=== PATIENT | female | born 1990 | race Caucasian/White ===

== ENCOUNTER 2018-08-08 11:13 | Emergency (ER) | payer OTHER ==
[~2018-08-08] VITALS: Ht 180.3 cm; Wt 109.9 kg
[~2018-08-08 11:13] MED LIST: CIPR500T4 PO; IBUP-974 PO
[2018-08-08 11:19] VITALS: BP 128/80
[2018-08-08 11:42] VITALS: BP 122/75
== END 2018-08-08 11:42 | disposition home or self-care (01) ==
LOC: MED 11:13
DX: O99.511 Diseases of the respiratory system complicating pregnancy, first trimester (principal); O21.9 Vomiting of pregnancy, unspecified; Z3A.01 Less than 8 weeks gestation of pregnancy; Z79.899 Other long term (current) drug therapy
CPT/HCPCS: 99283

== ENCOUNTER 2019-07-22 09:14 | Emergency (ER) | payer SELFPAY ==
[~2019-07-22] VITALS: Ht 180.3 cm; Wt 104.3 kg
[2019-07-22 09:15] VITALS: BP 161/108
--- NOTE | 2019-07-22 09:50 | NUR ---
PT WALKED TO ROOM 1 BY TRIAGE NURSE
[2019-07-22] MEDS ORDERED: hydrOXYzine HCL 25 MG TAB PO ONE (10:20)
[2019-07-22] MEDS ORDERED: ALBUTEROL SULFATE/IPRATROPIU 3 ML SOL IH ONE (10:20)
[2019-07-22] MEDS ORDERED: predniSONE 20 MG TAB PO ONE (10:20)
[2019-07-22] MEDS ORDERED: MECLIZINE 25 MG TAB PO ONE (10:20)
--- NOTE | 2019-07-22 10:28 | NUR ---
[facility] DRUG GIVEN ORDERED ENCOURAGED PATIENT FOR DEEP BREATHING DURING THERAPY
--- NOTE | 2019-07-22 10:47 | NUR ---
FLU SWAP DONE. PT WAS MEDICATED PER MD ORDER.
--- NOTE | 2019-07-22 13:00 | NUR ---
Patient discharged with v/s stable. Written and verbal after care instructions given and explained. Patient alert, oriented and verbalized understanding of instructions. Ambulatory with steady gait. All questions addressed prior to discharge. ID band removed. Patient advised to follow up with PMD. Rx of motrin and promethazine DM given. Patient educated on indication of medication including possible reaction and side effects. Opportunity to ask questions provided and answered.
[2019-07-22 13:13] VITALS: BP 121/75
== END 2019-07-22 13:00 | disposition home or self-care (01) ==
LOC: MED 09:14
DX: J11.1 Influenza due to unidentified influenza virus with other respiratory manifestations (principal); Z79.899 Other long term (current) drug therapy
CPT/HCPCS: 81025; 87804; 94640; 99284; J7512; J7620; J8597

== ENCOUNTER 2020-04-07 18:46 | Emergency (ER) | payer OTHER ==
[~2020-04-07] VITALS: Ht 182.9 cm; Wt 102.1 kg
[2020-04-07 18:48] VITALS: BP 156/97
--- NOTE | 2020-04-07 18:57 | NUR ---
WAIT AT LOBBY. HANDED ON URINE CUP.
[2020-04-07] MEDS ORDERED: LIDOCAINE VISCOUS 2% 20 ML UDC ONE (22:57)
[2020-04-07] MEDS ORDERED: ALUMINUM HYD/MAG/SIMETHICONE 30 ML UDC ONE (22:58)
[2020-04-07] MEDS ORDERED: DICYCLOMINE HCL LIQUID 10 MG/5 ML UDC ONE ×2 (22:59)
[2020-04-07] MEDS ORDERED: FAMOTIDINE 20 MG TAB ONE (23:04)
[2020-04-07] MEDS ORDERED: KETOROLAC 30 MG/ML VIAL IM ONE (23:59)
[2020-04-08] MEDS ORDERED: KETOROLAC 30 MG/ML VIAL ONE (00:15)
[2020-04-08] MEDS ORDERED: ONDANSETRON 4 MG ODT ONE (00:16)
[2020-04-08] MEDS ORDERED: ONDANSETRON 4 MG ODT PO ONE (13:45)
== END 2020-04-08 01:52 | disposition home or self-care (01) ==
LOC: MED 18:46
DX: R10.10 Upper abdominal pain, unspecified (principal); R11.0 Nausea; F12.90 Cannabis use, unspecified, uncomplicated
CPT/HCPCS: 74176; 99284; J1885; Q0162

== ENCOUNTER 2021-01-24 09:38 | Emergency (ER) | payer MEDICAID, OTHER ==
[~2021-01-24] VITALS: Ht 182.9 cm; Wt 114.8 kg
[2021-01-24 09:52] VITALS: BP 143/87
--- NOTE | 2021-01-24 09:57 | NUR ---
PT TAKEN TO BED 6.
--- NOTE | 2021-01-24 10:25 | NUR ---
30 Y/O F BIB SPOUSE FROM HOME, PATIENT PRESENTS TO ED WITH 7 WEEKS GESTATION, PELVIC CRAMPING 10/10 WITH VAGINAL BLEEDING, SOAKED 2 PADS, BRIGHT RED BLOOD STARTED THIS AM. PT STATES SHE HAS KERN 6 PREVIOUS MISCARRIAGES WITH SAME SYMTPOMS AROUND SAME TIME OF . DENIES N/V/D; SKIN IS PINK/WARM/DRY; AAOX4 WITH EVEN AND STEADY GAIT; LUNGS CLEAR BL; HR EVEN AND REGULAR; PT DENIES ANY FEVER, CP, SOB, OR COUGH AT THIS TIME; PATIENT STATES PAIN OF 10/10 AT THIS TIME; VSS; PATIENT POSITIONED FOR COMFORT; HOB ELEVATED; BEDRAILS UP X2; BED DOWN. ER MD MADE AWARE OF PT STATUS. 7G 0T 0P 6A 0L. PT WAS NOT SEEING OB DURING THIS , NO CARE. PMH: MISCARRIAGES NKA MED: TYLENOL 500MG LAST NIGHT, MUCOUS MEDICATION SPOUSE AT BEDSIDE
[2021-01-24 10:28] LABS: APPEARANCE,URINE CLEAR (CLEAR); BILIRUBIN,URINE NEGATIVE (NEGATIVE); BLOOD, URINE 3+ (NEGATIVE); COLOR,URINE YELLOW (YELLOW); LEUKOCYTE ESTERASE ,URINE NEGATIVE (NEGATIVE); NITRITE, URINE NEGATIVE (NEGATIVE); UGLUCOSE NEGATIVE (NEGATIVE)
[2021-01-24 10:37] LABS: RBC,URINE 50-80 /HPF (0-5); WBC,URINE NONE SEEN /HPF (0-5)
--- NOTE | 2021-01-24 11:21 | NUR ---
Dr. Raymond is evaluating the patient at bedside.
[2021-01-24 11:22] LABS: BASOPHILS % (AUTO) 0.5 % (0.0-2.0); EOSINOPHILS # (AUTO) 0.1 K/uL (0-0.4); HEMATOCRIT 42.6 % (36-48); HEMOGLOBIN 14.3 g/dL (12.0-16.0); LYMPHOCYTES # (AUTO) 1.9 K/uL (2.5-16.5); LYMPHOCYTES % (AUTO) 27.1 % (20.5-51.1); MEAN CORPUSCULAR HEMOGLOBIN 28 pg (27-31); MEAN CORPUSCULAR HGB CONC 34 g/dL (33-37); MEAN CORPUSCULAR VOLUME 84.3 fL (80-94); MONOCYTES # (AUTO) 0.7 K/uL (0.8-1.0); MONOCYTES % (AUTO) 10.2 % (1.7-9.3); NEUTROPHILS # (AUTO) 4.3 K/uL (1.8-7.7); NEUTROPHILS % (AUTO) 61.2 % (42.2-75.2); PLATELET COUNT (AUTO) 225 K/uL (140-450); RED BLOOD CELL COUNT(AUTO) 5.06 MIL/uL (4.20-5.40); RED CELL DISTRIBUTION WIDTH 13.5 % (11.6-13.7); WHITE BLOOD COUNT (AUTO) 7.1 K/uL (4.8-10.8)
[2021-01-24 11:39] LABS: ALBUMIN 4.2 g/dL (3.4-5.0); ANION GAP 11.2 (8-16); CARBON DIOXIDE 26.5 mmol/L (21-32); CREATININE 0.7 mg/dL (0.6-1.3); POTASSIUM 3.7 mmol/L (3.5-5.1); TOTAL BILIRUBIN 0.5 mg/dL (0.0-1.0)
[2021-01-24] MEDS ORDERED: ACETAMINOPHEN 325 MG TAB PO ONE (12:30)
--- NOTE | 2021-01-24 14:30 | NUR ---
Dr. Raymond at bedside for pelvic exam.
--- NOTE | 2021-01-24 15:20 | NUR ---
Patient discharged with v/s stable. Written and verbal after care instructions given and explained. Patient verbalized understanding. Ambulatory with steady gait. All questions addressed prior to discharge. Advised to follow up with PMD.
[2021-01-24 15:34] VITALS: BP 149/97
== END 2021-01-24 15:20 | disposition home or self-care (01) ==
LOC: MED 09:38
DX: O03.9 Complete or unspecified spontaneous abortion without complication (principal); Z3A.01 Less than 8 weeks gestation of pregnancy; Z79.899 Other long term (current) drug therapy
CPT/HCPCS: 36415; 76801; 80053; 81001; 81025; 84702; 85025; 86886; 86900; 86901; 99284

== ENCOUNTER 2021-07-17 08:05 | Emergency (ER) | payer OTHER ==
[~2021-07-17] VITALS: Ht 180.3 cm; Wt 104.3 kg
--- NOTE | 2021-07-17 08:05 | NUR ---
PT BIBA AND TAKEN TO BED 11
[2021-07-17 08:09] VITALS: BP_SYST 111; BP_SYST 122; BP_DIAS 59; BP_DIAS 65
--- NOTE | 2021-07-17 08:10 | NUR ---
DR. REED BEDSIDE EVALUATING PT
[2021-07-17] MEDS ORDERED: NACL 0.9% 1,000 ML IV ONE (08:15)
--- NOTE | 2021-07-17 08:28 | NUR ---
31 Y FEMALE BIBA FROM HOME C/O SYNCOPE THAT LASTED APPROX 1 MIN THIS AM. PER EMS BLOODSUGAR 127. PT STATED SHE WAS EXPERINCING N/V/D YESTERDAY, BUT TODAY IT HAS RESOLVED ITSELF. PT IS EXPERICNING MID-ABDOMINAL CRAMPING/TIGHTENING LIKE PAIN THAT IS FELT ONLY WHEN APPLYING PRESSURE O THE MID-ABDOMEN. PT CURRENT PAIN IS 5/10. PT STATED YESTERDAY SHE WAS UNABLE TO EAT OR DRINK ANYTHING WITHOUT EXPERICNING N/V. SKIN CURRENTLY DRY AND INTACT. PT CURRENTLY A&OX4. EMS PLACED IV IN PT L FOREARM IN FIELD. PMH: 7 MISCARRIAGES. LAST MISCARRIAGE IN JANUARY. JACIA
--- NOTE | 2021-07-17 08:30 | NUR ---
PT FIANCE BEDSIDE
--- NOTE | 2021-07-17 08:37 | NUR ---
LAB BEDSIDE COLLECTING BLOOD WORK
[2021-07-17 08:58] LABS: BASOPHILS % (AUTO) 0.1 % (0.0-2.0); EOSINOPHILS # (AUTO) 0.1 K/uL (0-0.4); EOSINOPHILS % (AUTO) 0.8 % (0.0-4.0); HEMATOCRIT 40.2 % (36-48); HEMOGLOBIN 13.6 g/dL (12.0-16.0); LYMPHOCYTES % (AUTO) 13.4 % (20.5-51.1); MEAN CORPUSCULAR HEMOGLOBIN 28 pg (27-31); MEAN CORPUSCULAR HGB CONC 34 g/dL (33-37); MEAN CORPUSCULAR VOLUME 84.2 fL (80-94); MONOCYTES # (AUTO) 0.6 K/uL (0.8-1.0); MONOCYTES % (AUTO) 9.1 % (1.7-9.3); NEUTROPHILS # (AUTO) 5.4 K/uL (1.8-7.7); NEUTROPHILS % (AUTO) 76.6 % (42.2-75.2); PLATELET COUNT (AUTO) 218 K/uL (140-450); RED BLOOD CELL COUNT(AUTO) 4.77 MIL/uL (4.20-5.40); RED CELL DISTRIBUTION WIDTH 12.8 % (11.6-13.7); WHITE BLOOD COUNT (AUTO) 7.1 K/uL (4.8-10.8)
[2021-07-17 09:14] LABS: ALBUMIN 3.5 g/dL (3.4-5.0); ANION GAP 11.1 (8-16); CARBON DIOXIDE 27.8 mmol/L (21-32); CREATININE 0.7 mg/dL (0.6-1.3); POTASSIUM 3.9 mmol/L (3.5-5.1); TOTAL BILIRUBIN 0.7 mg/dL (0.0-1.0)
[2021-07-17] MEDS ORDERED: ONDA-188 PO (09:28)
--- NOTE | 2021-07-17 09:34 | NUR ---
PATIENT AMBULATED TO RESTROOM WITH STEADY GAIT.
[2021-07-17 10:13] VITALS: BP 143/79
== END 2021-07-17 10:14 | disposition home or self-care (01) ==
LOC: MED 08:05
DX: R55 Syncope and collapse (principal); E86.0 Dehydration; K52.9 Noninfective gastroenteritis and colitis, unspecified; Z79.899 Other long term (current) drug therapy
CPT/HCPCS: 36415; 80053; 81002; 81025; 85025; 96360; 99283; J7030

== ENCOUNTER 2022-02-23 10:26 | Emergency (ER) | payer OTHER ==
[~2022-02-23] VITALS: Ht 182.9 cm; Wt 112.5 kg
[~2022-02-23 10:26] MED LIST changes: +ONDA-188 PO
[2022-02-23 10:32] VITALS: BP 158/84
--- NOTE | 2022-02-23 10:35 | NUR ---
PT TO WAIT IN LOBBY.
--- NOTE | 2022-02-23 10:36 | NUR ---
32 Y/O FEMALE C/O SORETHROAT WITH LEFT EAR PAIN 01/31 DESCRIBES SORE X1DAY. DENIES RX PRIOR TO ARRIVAL. DENIES TINNITUS. DENIES EAR DRAINAGE. DENIES N/V/D. DENIES PMH NKA
[2022-02-23] MEDS ORDERED: KETOROLAC 30 MG/ML VIAL IM ONE (13:15)
[2022-02-23] MEDS ORDERED: CRUSHER, PILL MC ONE (13:34)
--- NOTE | 2022-02-23 13:45 | NUR ---
Strep specimens obtained, walked to lab.
[2022-02-23] MEDS ORDERED: IBUP-2213 PO (15:20)
[2022-02-23] MEDS ORDERED: PRED20TA5 PO (15:20)
[2022-02-23] MEDS ORDERED: AMOX1TAB8 PO (15:22)
[2022-02-23 16:12] VITALS: BP 158/84
--- NOTE | 2022-02-23 16:13 | NUR ---
Patient discharged with v/s stable. Written and verbal after care instructions given and explained. Patient alert, oriented and verbalized understanding of instructions. Ambulatory with steady gait. All questions addressed prior to discharge. ID band removed. Patient advised to follow up with PMD. Rx of AMOX-CLAV, IBUPROFEN, DELTASONE given. Patient educated on indication of medication including possible reaction and side effects. Opportunity to ask questions provided and answered.
== END 2022-02-23 16:13 | disposition home or self-care (01) ==
LOC: MED 10:26
DX: J02.0 Streptococcal pharyngitis (principal); Z98.890 Other specified postprocedural states
CPT/HCPCS: 81025; 87081; 96372; 99283; J1885

== ENCOUNTER 2023-10-22 21:39 | Emergency (ER) | payer OTHER ==
[~2023-10-22] VITALS: Ht 172.7 cm; Wt 122.2 kg
[~2023-10-22 21:39] MED LIST changes: +AMOX1TAB8 PO; +IBUP-2213 PO; +PRED20TA5 PO
[2023-10-22 22:04] VITALS: BP 156/99; PULSE 93; RESP 16; TEMP 98; O2SAT 98
[2023-10-23] MEDS ORDERED: IBUP-2218 PO (01:21)
[2023-10-23] MEDS ORDERED: BENZ-300 PO (01:21)
[2023-10-23] MEDS: DEXAMETHASONE 10 MG/ML VIAL PO ONE (01:37)
[2023-10-23 01:40] VITALS: BP 156/99; PULSE 93; RESP 16; TEMP 98; O2SAT 98
== END 2023-10-23 01:40 | disposition home or self-care (01) ==
LOC: MED 21:39
DX: J02.8 Acute pharyngitis due to other specified organisms (principal); B97.89 Other viral agents as the cause of diseases classified elsewhere; Z79.899 Other long term (current) drug therapy
CPT/HCPCS: 87081; 99283; J1100